=== PATIENT | male | born 1965 | race Caucasian/White ===

== ENCOUNTER → 2024-12-11 08:06 | Outpatient (CLI) | payer OTHER, SELFPAY ==
--- NOTE | 2024-12-11 08:16 | DI.ECHO.S_ITS ---
[facility]---------+ [facility] : : [address] : : [place] : : [id number] : : Phone: [phone] Echocardiogram Report + + :Name: JACOBO SERRA Study Date: 12/11/2024 Height: 69 in : :Hospital ReadingLocation: Weight: 220 lb : : Gender: Male BSA: 2.2 m2 : :: 1965 Age: 59 yrs BP: 138/97 mmHg: :Reason For Study: ASTHMA, AFIB : :Ordering Physician: SWATI, : :MELBA Performed By: Nellie Mazariegos : :Referring: MELBA LONGORIA : + + Interpretation Summary Normal sinus rhythm. Normal LV size and mild LVH; low normal LV systolic function estimated at 50- 55%. Mildly dilated RV; otherwise normal chamber sizes. Mild AI; otherwise no significant valvular abnormalities. Estimated PA systolic pressure is 31 mm Hg assuming RA pressure of 3 mm Hg. No prior study available for comparison. Procedure: A two-dimensional transthoracic echocardiogram with color flow and Doppler was performed. The study quality was technically adequate. There is no prior echocardiogram noted for this patient. The patient was in sinus rhythm with heart rates between 66-81 bpm during the exam. Left Ventricle: The left ventricle is normal in size. There is mild concentric left ventricular hypertrophy. The ejection fraction is estimated to be 50-55%. Right Ventricle: The right ventricle is mildly dilated. The right ventricular systolic function is normal. Atria: The left atrial size is normal. Right atrial size is normal. There is no Doppler evidence for an interatrial shunt. Mitral Valve: The mitral valve leaflets appear to open well. There is no mitral regurgitation noted. Aortic Valve: The aortic valve is trileaflet. The aortic valve opens well. There is no aortic valve stenosis. There is mild aortic regurgitation. Tricuspid Valve: The tricuspid valve leaflets are thin and pliable. There is mild tricuspid regurgitation. The right ventricular systolic pressure is estimated to be at least 31 mmHg based on an estimated right atrial pressure of 3 mm Hg. Pulmonic Valve: The pulmonic valve leaflets are thin and pliable; valve motion is normal. There is mild pulmonic regurgitation. Great Vessels: The aortic root is normal size. The dimensions of the ascending aorta are normal. The IVC is of normal diameter and collapses greater than 50% with a sniff. This suggests a low right atrial pressure of 3 mm Hg. Pericardium/ Pleura There is no pericardial effusion. There is no pleural effusion. MMode/2D Measurements & Calculations LVIDd: 4.7 cm LVOT diam: 2.2 cm LVIDs: 3.8 cm Ao root diam: 3.4 cm FS: 19.8 % asc Aorta Diam: 3.4 cm IVSd: 1.2 cm Ao Arch Diam (Prox Trans): 2.7 cm LVPWd: 1.1 cm LV warner. diameter/BSA (cm/m^2): 2.2 LV sys. diameter/BSA (cm/m^2): 1.7 LA A2 area: 22.1 cm2 RA long axis: 5.7 cm LA A4 area: 16.1 cm2 RA area: 19.4 cm2 LA length (vol): 5.5 cm RA vol: 56.3 ml LA vol: 54.5 ml RA : 26.2 ml/m2 LA vol index: 25.4 ml/m2 IVC diam: 1.9 cm RVD1 (basal): 4.4 cm RVD2 (mid): 3.2 cm TAPSE: 2.2 cm Doppler Measurements & Calculations Ao V2 max: 132.9 cm/sec LVOT Max Wilfred: 69.6 cm/sec Ao V2 mean: 95.7 cm/sec LV V1 max P.9 mmHg Ao max P.1 mmHg LV V1 VTI: 14.8 cm Ao mean P.0 mmHg GELY(I,D): 2.2 cm2 Ao V2 VTI: 26.0 cm GELY(V,D): 2.0 cm2 sev ratio: 0.57 GELY indexed to BSA (cm^2/m^2): 1.0 AI P1/2t: 643.5 msec AI dec slope: 158.9 cm/sec2 MV E max wilfred: 53.3 cm/sec TR max wilfred: 264.8 cm/sec MV A max wilfred: 48.7 cm/sec TR max P.1 mmHg MV E/A: 1.1 PA V2 max: 104.6 cm/sec Med Peak E' Wilfred: 6.1 cm/sec PA V2 mean: 69.7 cm/sec E/E' med: 8.8 PA mean P.3 mmHg Lat Peak E' Wilfred: 7.2 cm/sec PA pr(Accel): 36.6 mmHg E/E' lat: 7.4 E/e' average: 8.1 MV dec time: 0.25 sec Pulm A Revs Wilfred: 20.8 cm/sec SV(LVOT): 57.1 ml Pulm A Revs Dur: 0.07 sec Electronically signed by: Ramandeep Degorot M.D. on Reading Physician:12/12/2024 04:10 AM
== END ==
PROVIDERS: Referring Provider Chiropractor; Visit Provider Chiropractor
DX: I08.2 Rheumatic disorders of both aortic and tricuspid valves (principal); J45.909 Unspecified asthma, uncomplicated; I48.91 Unspecified atrial fibrillation
CPT/HCPCS: 93306

== ENCOUNTER → 2024-12-11 08:11 | Outpatient (CLI) | payer OTHER, SELFPAY ==
--- NOTE | 2024-12-11 10:12 | EKG_ITS ---
[address] [address] Test Date: 2024-12-11 Pat Name: Eliecer Oliva Department: [facility] Room: Gender: Male Brand Strategist: NICHOL : 1965 Requested By: Order Number: [id number] Reading MD: Fitz Shea Measurements Intervals [place] Rate: 77 P: 48 [place]: 162 QRS: 19 QRSD: 88 T: 8 QT: 394 QTc: 445 Interpretive Statements Normal sinus rhythm Electronically Signed On 12-14-2024 18:25:52 PDT by Fitz Shea
[2024-12-11 10:29] LABS: Free T3, Triiodothyronine Free 4.53 pg/mL (2.77-5.27)
[2024-12-11 10:43] LABS: Thyroid Stimulating Hormone 1.68 uIU/mL (0.47-4.68)
[2024-12-13 13:10] LABS: Thyroxine Binding Globulin 21 ug/mL (13-39)
== END ==
LOC: RESP 08:12
PROVIDERS: Referring Provider Chiropractor; Visit Provider Chiropractor
DX: J45.909 Unspecified asthma, uncomplicated (principal); I48.91 Unspecified atrial fibrillation; C73 Malignant neoplasm of thyroid gland; R94.2 Abnormal results of pulmonary function studies
CPT/HCPCS: 36415; 84442; 84443; 84481; 93005; 94060